=== PATIENT | female | born 1945 | race Caucasian/White ===

== ENCOUNTER → 2017-08-11 | Outpatient (CLI) | payer MEDICARE, OTHER ==
[~2017-08-11] MED LIST: ACEBUTCAFT PO; ALLERTEC; ASPI81CH PO; ASPI81EC PO; BLOOD PRESSURE MED; CHOL10002 PO; CRANBERRY; DOCU100 PO; EZET10 PO; FENOFIBRIC ACI135 MG; FURO20; FURO20 PO; HALO.05TC TOP; HYDVAL.2TA TOP; IBUP400 PO; IBUPROFEN PO; NAPR500 PO; NIFE60ER PO; POTA10T PO; POTCHL10ER PO; PRAV10 PO; PRAV20 PO; PRAVASTATIN 40MG PO; TELM80 PO; TELM80/12.5 PO; UBID10 PO; VITAMIN D PO; [UNRECOGNIZED DRUG - OTHER] PO
[2017-08-11 15:43] LABS: Albumin, Blood 3.2 g/dL (3.4-5.0); Albumin/Globulin Ratio 0.6 (0.8-1.8); Bilirubin, Total 0.5 mg/dL (0.1-1.0); Bun/Creatinine Ratio 27.1 (12.0-20.0); Creatinine, Blood 1.44 mg/dL (0.40-1.00); Globulin, Blood 5.3 g/dL (2.2-4.0); Potassium, Blood 4.3 mmol/L (3.5-5.5); Total Protein, Blood 8.5 g/dL (6.4-8.2)
[2017-08-13 12:37] LABS: Albumin 3.5 g/dL (3.3-4.8); Albumin 43.3 % (45.0-80.0); Monoclonal Protein 1.5 g/dL; Monoclonal Protien % 18.1 %; Protein, Total 8.2 g/dL (6.1-7.8)
== END | disposition home or self-care (01) ==
LOC: LAB 14:06
PROVIDERS: Internal Medicine Hematology & Oncology
DX: D47.2 Monoclonal gammopathy (principal)
CPT/HCPCS: 80053; 84165; 86334

== ENCOUNTER → 2018-02-09 | Outpatient (CLI) | payer MEDICARE, OTHER ==
[2018-02-11 22:09] LABS: ALBUMIN 4.1 g/dL (2.9-4.4); ALPHA-1-GLOBULIN 0.3 g/dL (0.0-0.4); ALPHA-2-GLOBULIN 0.4 g/dL (0.4-1.0); GAMMA GLOBULIN 2.4 g/dL (0.4-1.8); GLOBULIN, TOTAL 4.1 g/dL (2.2-3.9); IMMUNOGLOBULIN A, QN, SERUM 185 mg/dL (64-422); IMMUNOGLOBULIN G, QN, SERUM 2606 mg/dL (700-1600); IMMUNOGLOBULIN M, QN, SERUM 181 mg/dL (26-217); M-SPIKE 1.4 g/dL (Not Observed); PROTEIN, TOTAL, SERUM 8.2 g/dL (6.0-8.5)
== END | disposition home or self-care (01) ==
LOC: LAB SHORT 11:42 → LAB 11:42
PROVIDERS: Internal Medicine Hematology & Oncology
DX: D47.2 Monoclonal gammopathy (principal)
CPT/HCPCS: 84165

== ENCOUNTER → 2018-08-19 | Outpatient (CLI) | payer MEDICARE, OTHER ==
[2018-08-24 18:06] LABS: A/G RATIO 0.8 (0.7-1.7); ALBUMIN 3.3 g/dL (2.9-4.4); ALPHA-1-GLOBULIN 0.3 g/dL (0.0-0.4); ALPHA-2-GLOBULIN 0.5 g/dL (0.4-1.0); BETA GLOBULIN 1.1 g/dL (0.7-1.3); GAMMA GLOBULIN 2.1 g/dL (0.4-1.8); GLOBULIN, TOTAL 4.1 g/dL (2.2-3.9); IMMUNOGLOBULIN A, QN, SERUM 170 mg/dL (64-422); IMMUNOGLOBULIN G, QN, SERUM 2060 mg/dL (700-1600); IMMUNOGLOBULIN M, QN, SERUM 171 mg/dL (26-217); M-SPIKE 1.3 g/dL (Not Observed); PROTEIN, TOTAL, SERUM 7.4 g/dL (6.0-8.5)
== END | disposition home or self-care (01) ==
LOC: LAB SHORT 15:32 → LAB 15:32
PROVIDERS: Internal Medicine Hematology & Oncology
DX: D47.2 Monoclonal gammopathy (principal)
CPT/HCPCS: 84165

== ENCOUNTER → 2019-03-10 | Outpatient (CLI) | payer MEDICARE, OTHER | END | disposition home or self-care (01) | LOC: LAB SHORT 07:40 → LAB 07:40 | DX: D49.2 Neoplasm of unspecified behavior of bone, soft tissue, and skin (principal) | CPT/HCPCS: 88305 ==

== ENCOUNTER 2020-01-27 09:22 | Day surgery (SDC) | payer MEDICARE, OTHER ==
[~2020-01-27] VITALS: Ht 165.1 cm; Wt 101.6 kg
[~2020-01-27 09:22] MED LIST changes: +Aspirin EC81 MG PO; +CO Q10100 MG PO; +Cranberry300 MG PO; +FAMC500; +MICARDIS HCT 81 EAC1 PO; +OMEGA-3-FISH O1 EAC3 PO; +Trilipix135 MG PO; +VITAMIN D325 MC3 PO; +ZYRTEC10 M2 PO
== END 2020-01-27 11:37 | disposition home or self-care (01) ==
LOC: ORSCSDS 09:22
PROVIDERS: Surgery
PROC: 0DJD8ZZ Inspection of Lower Intestinal Tract, Via Natural or Artificial Opening Endoscopic (ICD-10-PCS; principal; 2020-01-27 10:30)
DX: Z12.11 Encounter for screening for malignant neoplasm of colon (principal); K57.30 Diverticulosis of large intestine without perforation or abscess without bleeding; I10 Essential (primary) hypertension; Z80.0 Family history of malignant neoplasm of digestive organs; E78.00 Pure hypercholesterolemia, unspecified; G47.30 Sleep apnea, unspecified; E66.01 Morbid (severe) obesity due to excess calories; Z68.39 Body mass index [BMI] 39.0-39.9, adult; Z79.82 Long term (current) use of aspirin; Z79.899 Other long term (current) drug therapy
CPT/HCPCS: J2704; J7120

== ENCOUNTER → 2020-03-20 | Outpatient (CLI) | payer MEDICARE, OTHER ==
[2020-03-20 11:18] LABS: Albumin, Blood 3.3 g/dL (3.4-5.0); Albumin/Globulin Ratio 0.8 (0.8-1.8); Bilirubin, Total 0.4 mg/dL (0.1-1.0); Calcium, Blood 8.9 mg/dL (8.5-10.1); Creatinine, Blood 1.73 mg/dL (0.40-1.00); Globulin, Blood 4.2 g/dL (2.2-4.0); Potassium, Blood 4.5 mmol/L (3.5-5.5); Total Protein, Blood 7.5 g/dL (6.4-8.2)
== END | disposition home or self-care (01) ==
LOC: LAB 10:58 → LAB SHORT 10:58
PROVIDERS: Internal Medicine Hematology & Oncology
DX: D47.2 Monoclonal gammopathy (principal)
CPT/HCPCS: 80053; 84100

== ENCOUNTER → 2021-07-12 | Outpatient (CLI) | payer MEDICARE, OTHER ==
[2021-07-12 16:26] LABS: BASOPHILS ABSOLUTE AUTO 0.02 K/mm3 (0.00-0.23); BASOPHILS PERCENT AUTO 0 % (0-2); EOSINOPHILS ABSOLUTE AUTO 0.06 K/mm3 (0.00-0.68); EOSINOPHILS PERCENT AUTO 1 % (0-6); Hematocrit 39.1 % (33.0-51.0); IMMATURE GRAN ABSOLUTE AUTO 0.02 K/mm3 (0.00-0.10); IMMATURE GRAN PERCENT AUTO 0 % (0-1); LYMPHOCYTES ABSOLUTE AUTO 1.02 K/mm3 (0.84-5.20); LYMPHOCYTES PERCENT AUTO 20 % (21-46); MONOCYTES ABSOLUTE AUTO 0.28 K/mm3 (0.16-1.47); MONOCYTES PERCENT AUTO 5 % (4-13); Mean Corpuscular HGB 29.5 pg (26.0-34.0); Mean Corpuscular HGB Conc 33.2 g/dL (31.5-36.5); Mean Corpuscular Volume 89 fL (80-100); Mean Platelet Volume 10.5 fL (9.1-12.4); NEUTROPHILS ABSOLUTE AUTO 3.75 K/mm3 (1.96-9.15); NEUTROPHILS PERCENT AUTO 73 % (41-73); Platelet Count 255 K/mm3 (150-400); RDW Coefficient Variation 13.6 % (11.7-14.2); RDW Standard Deviation 44.1 fL (35.1-46.3); White Blood Cell Count 5.15 K/mm3 (4.00-11.30)
[2021-07-12 16:41] LABS: Albumin, Blood 3.4 g/dL (3.4-5.0); Albumin/Globulin Ratio 0.7 (0.8-1.8); Bilirubin, Total 0.4 mg/dL (0.1-1.0); Bun/Creatinine Ratio 19.1 (12.0-20.0); Calcium, Blood 9.4 mg/dL (8.5-10.1); Creatinine, Blood 1.94 mg/dL (0.40-1.00); Globulin, Blood 5.1 g/dL (2.2-4.0); Potassium, Blood 4.4 mmol/L (3.5-5.5); Total Protein, Blood 8.5 g/dL (6.4-8.2)
== END | disposition home or self-care (01) ==
LOC: LAB 16:19 → LAB SHORT 16:19
PROVIDERS: Physician Assistant
DX: R11.0 Nausea (principal)
CPT/HCPCS: 80053; 85025

== ENCOUNTER 2022-12-04 06:20 | Day surgery (SDC) | payer MEDICARE, OTHER ==
[~2022-12-04] VITALS: Ht 165.1 cm; Wt 104.3 kg
[~2022-12-04 06:20] MED LIST changes: +KRILL OIL500 MG PO; +XYZAL5 MG PO
[2022-12-04 06:56] VITALS: BP 135/60
[2022-12-04] MEDS ORDERED: ASPI81CH PO (07:22)
[2022-12-04] MEDS ORDERED: PROM25 PO (07:24)
[2022-12-04] MEDS ORDERED: TRAM50 PO (07:24)
[2022-12-04] MEDS ORDERED: SULTRIDS PO (07:24)
[2022-12-04 07:32] LABS: Source, Urine Clean Catch
[2022-12-04 07:35] LABS: Appearance, Urine Hazy (Clear); Bilirubin, Urine Neg (Neg); Blood, Urine 1+ (Neg); Color, Urine Yellow (P-Yellow); Glucose Qualitative, Urine Neg (Neg); Ketones, Urine Neg (Neg); Leukocyte Esterase, Urine 1+ (Neg); Nitrite, Urine Neg (Neg); Protein, Urine 1+ (Neg); Urobilinogen, Urine NORM (Normal)
--- NOTE | 2022-12-04 07:37 | NUR ---
Ambulatory in [facility] warming gown applied. Surgical site prepped with 2% Chlorhexidine cloth wipe. History, Chart, Medications and Allergies reviewed before start of procedure.Lungs clear T/O to Auscultation. Patient confirms NPO status and agrees with scheduled surgery. Pre-Op teaching done. Pt verbalizes understanding. Patient States Post-Procedure ride home has been arranged. Patient reports completing Chlorhexadine shower X2 prior to admission to hospital. THE PATIENT THOUGHT THAT SJE MIGHT HAVE A UTI, SO DR. GALE ODERED A UA FOR BEFORE THE PROCEDURE.
[2022-12-04 07:43] LABS: Bacteria Mod /hpf; Hyaline Casts 0-2 /lpf (0-2)
[2022-12-04 07:44] LABS: Red Blood Cells, Urine 0-2 /hpf (0-2)
[2022-12-04 07:45] LABS: Mucus Light (0-Heavy); Squamous Epithelial Cells Few /hpf (Few)
[2022-12-04 07:46] LABS: Transitional Epithelial Cells Rare /hpf (0-Rare)
--- NOTE | 2022-12-04 08:04 | NUR ---
THE PATIENT WAS POSITIVE FOR A UTI AND HER PROCEDURE WAS CANCELLED, PER .
== END 2022-12-04 08:09 | disposition home or self-care (01) ==
LOC: ORSCMMR 06:20 → ORD 07:30 → ORSCMMR 08:09
PROVIDERS: Orthopaedic Surgery
DX: M16.11 Unilateral primary osteoarthritis, right hip (principal); Z53.9 Procedure and treatment not carried out, unspecified reason
CPT/HCPCS: 81001; 87077; 87086; 87186; A9270; J0171; J0690; J0735; J1885; J2704; J2795; J3010; J3370; J7120

== ENCOUNTER 2023-01-15 06:23 | Day surgery (SDC) | payer MEDICARE, OTHER ==
[2023-01-15] VITALS (11 sets, daily range): BP systolic 92–156; BP diastolic 52–80
[~2023-01-15] VITALS: Ht 160 cm; Wt 102.3 kg
[~2023-01-15 06:23] MED LIST changes: +PROM25 PO; +SULTRIDS PO; +TRAM50 PO
--- NOTE | 2023-01-15 08:37 | NUR ---
Ambulatory in Day Surgery. Pre-Op teaching done. Pt verbalizes understanding. Patient confirms NPO status and agrees with scheduled surgery. History, Chart, Medications and Allergies reviewed before start of procedure. Patient reports completing Chlorhexadine shower X2 prior to admission to hospital. Surgical site prepped with 2% Chlorhexidine cloth wipe. Lungs clear T/O to Auscultation. Patient States Post-Procedure ride home has been arranged.
--- NOTE | 2023-01-15 12:22 | NUR ---
ARRIVAL TO UNIT ALERT & PLEASANT, BUT C/O NAUSEA. COOL WASHCLOTH GIVEN & ALLOWED TO REST. ICE CHIPS ONLY AT THIS TIME. ASSESSMENT CHARTED.
--- NOTE | 2023-01-15 18:02 | NUR ---
SHIFT SUMMARY WORKED w/ THERAPY. STRUGGLING w/ NAUSEA. PAIN WELL CONTROLLED. IVF INFUSING. VOIDED.
[2023-01-16 00:16] VITALS: BP 153/68
[2023-01-16 04:47] VITALS: BP 172/68
--- NOTE | 2023-01-16 05:11 | NUR ---
SHIFT SUMMARY POD1 RIGHT TKA. DRESSING IS C.D.I. PATIENT ABLE TO BEAR WEIGHT. CAP REFILL AND SENSATION REMAIN INTACT. VSS, HTN NOTED THIS AM AFTER LABS. PT REMAINS ASYMPTOMATIC. PT HAD A ROUGH NIGHT IN RELATION TO NAUSEA. MEDICATED MULTIPLE TIMES WITH LIMMITED RESULTS. ANY TIME PATIENT GOT OOB, OR MOVED IN BED, NAUSEA AND DRY HEAVES/SMALL AMOUNTS OF EMESIS OCCURED. IV FLUIDS INFUSING D/T MINIMAL PO INTAKE. PAIN HAS BEEN MANAGED WELL, MEDICATED WITH SCHEDULED AND USE OF ONE PRN. PT HAS BEEN OOB TO VOID X3. PLAN TO WORK WITH THERAPY AND HOPEFULLY D/C HOME IF NAUSEA IS UNDER CONTROL. NO IGNITION SOURCE NOTED
[2023-01-16 05:35] VITALS: BP 173/76
[2023-01-16 07:44] VITALS: BP 174/82
[2023-01-16 07:45] VITALS: BP 179/71
[2023-01-16 08:11] LABS: BASOPHILS ABSOLUTE AUTO 0.02 K/mm3 (0.00-0.23); BASOPHILS PERCENT AUTO 0 % (0-2); EOSINOPHILS ABSOLUTE AUTO 0.03 K/mm3 (0.00-0.68); EOSINOPHILS PERCENT AUTO 0 % (0-6); Hematocrit 33.1 % (33.0-51.0); Hemoglobin 10.7 g/dL (11.5-16.0); IMMATURE GRAN ABSOLUTE AUTO 0.02 K/mm3 (0.00-0.10); IMMATURE GRAN PERCENT AUTO 0 % (0-1); LYMPHOCYTES PERCENT AUTO 10 % (21-46); MONOCYTES ABSOLUTE AUTO 0.39 K/mm3 (0.16-1.47); MONOCYTES PERCENT AUTO 5 % (4-13); Mean Corpuscular HGB 29.5 pg (26.0-34.0); Mean Corpuscular HGB Conc 32.3 g/dL (31.5-36.5); Mean Corpuscular Volume 91 fL (80-100); Mean Platelet Volume 9.5 fL (9.1-12.4); NEUTROPHILS PERCENT AUTO 84 % (41-73); Platelet Count 199 K/mm3 (150-400); RDW Coefficient Variation 14.1 % (11.7-14.2); RDW Standard Deviation 47.4 fL (35.1-46.3); Red Blood Cell Count 3.63 M/mm3 (3.80-5.20); White Blood Cell Count 7.36 K/mm3 (4.00-11.30)
[2023-01-16 08:31] LABS: Bun/Creatinine Ratio 23.4 (12.0-20.0); Calcium, Blood 8.7 mg/dL (8.5-10.1); Creatinine, Blood 1.88 mg/dL (0.40-1.00); Magnesium, Blood 1.9 mg/dL (1.6-2.4); Potassium, Blood 4.2 mmol/L (3.5-5.5)
--- NOTE | 2023-01-16 10:35 | NUR ---
SCRIPT FOR PHENERGAN CALLED TO [facility] PER PT REQUEST.
--- NOTE | 2023-01-16 15:25 | NUR ---
DISCHARGE POD 1 RTKA PT CONTINUED TO DENY PAIN. NAUSEA RESOLVED THIS AFTERNOON AND PATIENT ABLE TO EAT SOME LUNCH. AMBULATING WELL WITH THERAPY USING FWW AND GB. AQUACEL CDI. EXTRA DRESSING WITH PATIENT. ALL BELONGINGS WITH PATIENT, ESCORTED OUT WITH WHEELCHAIR. INSTRUCTIONS GONE OVER WITH PATIENT, DENIED FURTHER QUESTIONS.
== END 2023-01-16 15:30 | disposition home or self-care (01) ==
LOC: ORSCMMR 06:23 → ORD 07:30 → SURS 12:14 → ORSCMMR 01-16 15:30 → SURS 01-16 15:30
PROVIDERS: Orthopaedic Surgery
PROC: 0SRC0J9 Replacement of Right Knee Joint with Synthetic Substitute, Cemented, Open Approach (ICD-10-PCS; principal; 2023-01-15 07:30)
DX: M17.11 Unilateral primary osteoarthritis, right knee (principal); E78.00 Pure hypercholesterolemia, unspecified; E66.01 Morbid (severe) obesity due to excess calories; Z68.41 Body mass index [BMI] 40.0-44.9, adult; G47.33 Obstructive sleep apnea (adult) (pediatric); I12.9 Hypertensive chronic kidney disease with stage 1 through stage 4 chronic kidney disease, or unspecified chronic kidney disease; N18.9 Chronic kidney disease, unspecified; Z79.899 Other long term (current) drug therapy
CPT/HCPCS: 36415; 73560-RT; 80048; 83735; 85025; 97110; 97116; 97162; A9270; C1713; C1776; J0171; J0690; J0735; J0780; J1885; J2371; J2405; J2704; J2765; J2795; J3010; J3370; J7050; J7120

== ENCOUNTER → 2024-12-21 | Outpatient (CLI) | payer MEDICARE, OTHER | END | disposition home or self-care (01) | LOC: LAB 16:19 → LAB SHORT 16:19 | DX: N39.0 Urinary tract infection, site not specified (principal) | CPT/HCPCS: 87077; 87086; 87186 ==

== ENCOUNTER → 2024-12-29 | Outpatient (CLI) | payer MEDICARE, OTHER | LOC: LAB SHORT 15:54 → LAB 15:54 | DX: N39.0 Urinary tract infection, site not specified (principal) | CPT/HCPCS: 87086 ==

== ENCOUNTER 2025-02-25 09:41 | Day surgery (SDC) | payer MEDICARE, OTHER ==
[~2025-02-25] VITALS: Ht 162.6 cm; Wt 99.8 kg
[~2025-02-25 09:41] MED LIST changes: +Glycopyrrolate 0.2 MG/ML 1MLVIAL ONE; +Ondansetron HCl 2 MG / ML 2ML Vial ONE; +ePHEDrine Sulfate 50 MG/ML 1ML Injection ONE
[2025-02-25] MEDS ORDERED: ALLEGRA ALLERG180 MG (09:57)
[2025-02-25] MEDS ORDERED: MASOPHEN325 M3 (09:57)
[2025-02-25 11:07] VITALS: BP 111/63
== END 2025-02-25 11:16 | disposition home or self-care (01) ==
LOC: ORSCSDS 09:41
PROVIDERS: Surgery
PROC: 0DJD8ZZ Inspection of Lower Intestinal Tract, Via Natural or Artificial Opening Endoscopic (ICD-10-PCS; principal; 2025-02-25 11:00)
DX: Z12.11 Encounter for screening for malignant neoplasm of colon (principal); Z80.0 Family history of malignant neoplasm of digestive organs; K57.90 Diverticulosis of intestine, part unspecified, without perforation or abscess without bleeding; Z86.19 Personal history of other infectious and parasitic diseases; G47.33 Obstructive sleep apnea (adult) (pediatric); Z90.49 Acquired absence of other specified parts of digestive tract; I10 Essential (primary) hypertension; Z79.899 Other long term (current) drug therapy; Z79.82 Long term (current) use of aspirin; E78.00 Pure hypercholesterolemia, unspecified
CPT/HCPCS: J0461; J2405; J2704; J7120

== ENCOUNTER 2025-05-05 11:59 | Day surgery (SDC) | payer MEDICARE, OTHER ==
[~2025-05-05] VITALS: Ht 162.6 cm; Wt 100.8 kg
[~2025-05-05 11:59] MED LIST changes: +ALLEGRA ALLERG180 MG; +Balanced Salt Epinephrine Irrigation Solution 500 mL IR SCH; -Glycopyrrolate 0.2 MG/ML 1MLVIAL ONE; +MASOPHEN325 M3; +Moxifloxacin HCL 0.5 MG/0.1 ML 0.4MLSYR RIGHTEYE SCH; +Ondansetron 4 MG SoluTab MM PRN; -Ondansetron HCl 2 MG / ML 2ML Vial ONE; +PHENYLEPHRINE\\TROPICAMIDE\\TETRACAINE OPHTHALMIC DILATING SOLN RIGHTEYE PRN; +Povidone-Iodine 450 DROP/30 ML Solution ONE; +Povidone-Iodine 450 DROP/30 ML Solution RIGHTEYE SCH; +Tetracaine HCl/Pf 0.5% Opth Soln 4 ml ONE; +Triamcinolone Inj Susp 40 MG / ML 1ML Vial INJ SCH; +Triamcinolone Inj Susp 40 MG / ML 1ML Vial ONE; -ePHEDrine Sulfate 50 MG/ML 1ML Injection ONE
[2025-05-05] MEDS ORDERED: NS 1,000 ML IV ONE (12:52)
[2025-05-05] MEDS ORDERED: Midazolam HCl 1MG / ML 2ML Vial ONE (12:58)
[2025-05-05] MEDS ORDERED: Tetracaine HCl 0.5% Opth Soln 15 ml RIGHTEYE ONE (13:05)
[2025-05-05 13:48] VITALS: BP 137/67
== END 2025-05-05 13:35 | disposition home or self-care (01) ==
LOC: ORSCSDS 11:59
PROVIDERS: Ophthalmology
PROC: 08RJ3JZ Replacement of Right Lens with Synthetic Substitute, Percutaneous Approach (ICD-10-PCS; principal; 2025-05-05 13:30)
DX: H25.811 Combined forms of age-related cataract, right eye (principal); I12.9 Hypertensive chronic kidney disease with stage 1 through stage 4 chronic kidney disease, or unspecified chronic kidney disease; N18.1 Chronic kidney disease, stage 1; E78.00 Pure hypercholesterolemia, unspecified; G47.33 Obstructive sleep apnea (adult) (pediatric); E66.9 Obesity, unspecified; Z68.35 Body mass index [BMI] 35.0-35.9, adult; Z79.82 Long term (current) use of aspirin; Z79.899 Other long term (current) drug therapy
CPT/HCPCS: J2250; J3301; V2632

== ENCOUNTER 2025-05-12 11:31 | Day surgery (SDC) | payer MEDICARE, OTHER ==
[~2025-05-12] VITALS: Ht 162.6 cm; Wt 100.5 kg
[~2025-05-12 11:31] MED LIST changes: +Moxifloxacin HCL 0.5 MG/0.1 ML 0.4MLSYR LEFTEYE SCH; -Moxifloxacin HCL 0.5 MG/0.1 ML 0.4MLSYR RIGHTEYE SCH; +NS 500 ML IV ONE; -Ondansetron 4 MG SoluTab MM PRN; +PHENYLEPHRINE\\TROPICAMIDE\\TETRACAINE OPHTHALMIC DILATING SOLN LEFTEYE PRN; -PHENYLEPHRINE\\TROPICAMIDE\\TETRACAINE OPHTHALMIC DILATING SOLN RIGHTEYE PRN; +Povidone-Iodine 450 DROP/30 ML Solution LEFTEYE SCH; -Povidone-Iodine 450 DROP/30 ML Solution RIGHTEYE SCH
[2025-05-12] MEDS ORDERED: NS 500 ML IV ONE (12:37)
[2025-05-12] MEDS ORDERED: Midazolam HCl 1MG / ML 2ML Vial ONE ×2 (12:41→12:47)
[2025-05-12] MEDS ORDERED: Tetracaine HCl 0.5% Opth Soln 15 ml LEFTEYE ONE (12:46)
[2025-05-12 13:02] VITALS: BP 139/64
--- NOTE | 2025-05-12 13:21 | NUR ---
05/12/25 1321 Ariana Flowers OBSERVED LEFT EYE BEING BLOOD SHOT. DR. VENEGAS AWARE. NO ORDERS GIVEN.
== END 2025-05-12 13:17 | disposition home or self-care (01) ==
LOC: ORSCSDS 11:31
PROVIDERS: Ophthalmology
PROC: 08RK3JZ Replacement of Left Lens with Synthetic Substitute, Percutaneous Approach (ICD-10-PCS; principal; 2025-05-12 13:30)
DX: H25.812 Combined forms of age-related cataract, left eye (principal); Z96.1 Presence of intraocular lens; I12.9 Hypertensive chronic kidney disease with stage 1 through stage 4 chronic kidney disease, or unspecified chronic kidney disease; N18.1 Chronic kidney disease, stage 1; E78.00 Pure hypercholesterolemia, unspecified; G47.33 Obstructive sleep apnea (adult) (pediatric); Z79.82 Long term (current) use of aspirin; Z79.899 Other long term (current) drug therapy
CPT/HCPCS: J2250; J3301; J7040; V2632